=== PATIENT | male | born 1955 | race Caucasian/White ===

== ENCOUNTER 2017-12-01 20:25 | Emergency (ER) | payer OTHER ==
[~2017-12-01] VITALS: Ht 160 cm; Wt 75.0 kg
[2017-12-01] MEDS ORDERED: SODIUM CHLORIDE 0.9% 1,000 ML IV ONE ×2 (20:45→21:45)
[2017-12-01 20:52] LABS: GLUCOSE,POINT OF CARE 313 MG/DL (70-110)
[2017-12-01 20:59] LABS: BASOPHILS % (AUTO) 0.6 % (0.0-2.0); EOSINOPHILS % (AUTO) 2.2 % (1.0-6.0); HEMATOCRIT 45.6 % (41-53); HEMOGLOBIN 15.5 g/dL (13.5-17.5); LYMPHOCYTES # (AUTO) 1.2 K/uL (1.0-4.8); LYMPHOCYTES % (AUTO) 20.1 % (22.0-44.0); MEAN CORPUSCULAR HGB CONC 33.9 G/dL (31.0-37.0); MEAN CORPUSCULAR VOLUME 89 fL (80-100); MONOCYTES # (AUTO) 0.4 K/uL (0.1-1.0); MONOCYTES % (AUTO) 7.2 % (2.0-9.0); NEUTROPHILS # (AUTO) 4.2 K/uL (1.8-7.7); NEUTROPHILS % (AUTO) 69.9 % (40.0-70.0); PLATELET COUNT (AUTO) 143 K/uL (150-450); RED BLOOD CELL COUNT(AUTO) 5.15 MIL/uL (4.50-5.90); RED CELL DISTRIBUTION WIDTH 13.2 % (11.5-14.5)
[2017-12-01 21:10] LABS: ANION GAP 8 mmol/L (8-16); CALCIUM, TOTAL 9.2 mg/dL (8.8-10.5); CARBON DIOXIDE 27 mmol/L (22-29); CHLORIDE 100 mmol/L (98-107); CREATININE 1.06 mg/dL (0.60-1.30); GLOMERULAR FILTR. RATE CALC > 60 mL/min (>60); GLUCOSE,RANDOM 334 mg/dL (70-110); POTASSIUM 4.2 mmol/L (3.5-5.1); SODIUM SERUM 135 mmol/L (136-145); UREA NITROGEN, BLOOD 18 mg/dL (7-18)
[2017-12-01 21:16] LABS: ALANINE AMINOTRANSFERASE 78 U/L (12-78); ALBUMIN 3.9 g/dL (3.4-5.0); ALKALINE PHOSPHATASE 141 U/L (46-116); ASPARTATE AMINOTRANSFERASE 34 U/L (15-37); BILIRUBIN,TOTAL 0.4 mg/dL (0.1-1.0); TOTAL PROTEIN, SERUM 7.9 g/dL (6.4-8.2)
[2017-12-01 21:37] LABS: GLUCOSE,POINT OF CARE 297 MG/DL (70-110)
[2017-12-01] MEDS ORDERED: INSULIN REGULAR, HUMAN 100 UNITS/ML IVP ONE (21:45)
[2017-12-01 22:42] LABS: GLUCOSE,POINT OF CARE 167 MG/DL (70-110)
[2017-12-01 22:46] VITALS: BP 146/95
== END 2017-12-01 22:51 | disposition home or self-care (01) ==
LOC: EMS 20:27
DX: E11.65 Type 2 diabetes mellitus with hyperglycemia (principal); Z02.89 Encounter for other administrative examinations
CPT/HCPCS: 36415; 80053; 82962; 85025; 96361; 96374; 99284; J1815; J7030

== ENCOUNTER 2020-04-16 19:44 | Emergency (ER) | payer MEDICARE, OTHER ==
[~2020-04-16] VITALS: Ht 167.6 cm; Wt 72.7 kg
[2020-04-16] MEDS ORDERED: ACETAMINOPHEN 325 MG TABLET PO ONE (22:30)
[2020-04-16] MEDS ORDERED: OxyCODONE HCL 5 MG IR TABLET PO ONE (22:45)
[2020-04-17] MEDS ORDERED: MORPHINE SULFATE 4 MG/ML SYRINGE IVP ONE (00:45)
[2020-04-17 01:15] VITALS: BP 156/75
== END 2020-04-17 01:15 | disposition short-term general hospital (02) ==
LOC: EMS 19:49
DX: S02.31XA Fracture of orbital floor, right side, initial encounter for closed fracture (principal); E11.9 Type 2 diabetes mellitus without complications; F15.90 Other stimulant use, unspecified, uncomplicated; Y04.0XXA Assault by unarmed brawl or fight, initial encounter; Y93.89 Activity, other specified; Y92.89 Other specified places as the place of occurrence of the external cause; Y99.8 Other external cause status
CPT/HCPCS: 70450; 70486; 96374; 99291; J2270

== ENCOUNTER → 2022-08-21 | Outpatient (CLI) | payer OTHER | END | disposition home or self-care (01) | LOC: RADMN 09:44 | PROVIDERS: ATTEND Internal Medicine Cardiovascular Disease | DX: R90.82 White matter disease, unspecified (principal) | CPT/HCPCS: 70551 ==